=== PATIENT | male | born 1995 | race Caucasian/White ===

== ENCOUNTER 2018-08-04 14:32 | Emergency (ER) | payer BC ==
[~2018-08-04] VITALS: Ht 177.8 cm; Wt 72.6 kg
[2018-08-04 14:35] VITALS: BP_SYST 128
--- NOTE | 2018-08-04 14:57 | NUR ---
BROUGHT BACK TO BED #1 AND TRIAGED. REPORT GIVEN TO ZAIN
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
--- NOTE | 2018-08-04 15:12 | NUR ---
[place] police report #[id number]
--- NOTE | 2018-08-04 15:20 | NUR ---
ER at bedside examining patient. Dr Baugh at bedside for laceration repair.
[2018-08-04] MEDS ORDERED: LIDOCAINE 1% 10 MG/ML, 20 ML MDV INJ ONE (15:30)
[2018-08-04] MEDS ORDERED: DIPH-TET-PERTUS Vaccine 0.5 ML VIAL (ADACEL) I.M. ONE (15:45)
[2018-08-04 16:15] VITALS: BP_SYST 120
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
== END 2018-08-04 16:15 | disposition home or self-care (01) ==
LOC: SED 14:32
DX: S61.411A Laceration without foreign body of right hand, initial encounter (principal); R03.0 Elevated blood-pressure reading, without diagnosis of hypertension; W26.0XXA Contact with knife, initial encounter; Y93.89 Activity, other specified; Y92.89 Other specified places as the place of occurrence of the external cause; Y99.8 Other external cause status
CPT/HCPCS: 12002; 90715; 90471; 99283; J2001

== ENCOUNTER 2018-08-07 20:50 | Emergency (ER) | payer BC ==
[~2018-08-07] VITALS: Ht 177.8 cm; Wt 72.6 kg
[2018-08-07 21:03] VITALS: BP_SYST 139
[2018-08-07 23:33] VITALS: BP_SYST 127
== END 2018-08-07 23:33 | disposition home or self-care (01) ==
LOC: SED 20:50
DX: S61.411D Laceration without foreign body of right hand, subsequent encounter (principal); R03.0 Elevated blood-pressure reading, without diagnosis of hypertension; W26.0XXD Contact with knife, subsequent encounter
CPT/HCPCS: 99282